=== PATIENT | male | born 1950 | race Caucasian/White ===

== ENCOUNTER → 2023-08-11 | Outpatient (CLI) | payer OTHER, SELFPAY ==
[~2023-08-11] MED LIST: IBUP200C5 PO; IOHEXOL 350 MG/ML 100ML INFUS..BTL IV ONE; LOSA50TA64 PO; OMEP40CA21 PO; ZOLP10TA2 PO
== END | disposition home or self-care (01) ==
LOC: RAH 08:32
PROVIDERS: ATTEND Student in an Organized Health Care Education/Training Program
DX: I25.10 Atherosclerotic heart disease of native coronary artery without angina pectoris (principal); I51.7 Cardiomegaly; K44.9 Diaphragmatic hernia without obstruction or gangrene; R94.31 Abnormal electrocardiogram [ECG] [EKG]; M47.815 Spondylosis without myelopathy or radiculopathy, thoracolumbar region
CPT/HCPCS: 75574; Q9967

== ENCOUNTER → 2023-09-09 | Outpatient (CLI) | payer OTHER ==
[~2023-09-09] MED LIST changes: -IOHEXOL 350 MG/ML 100ML INFUS..BTL IV ONE
== END | disposition home or self-care (01) ==
LOC: SHCH 08:30
PROVIDERS: ATTEND Student in an Organized Health Care Education/Training Program
DX: I25.10 Atherosclerotic heart disease of native coronary artery without angina pectoris (principal); R94.31 Abnormal electrocardiogram [ECG] [EKG]; I10 Essential (primary) hypertension; E78.5 Hyperlipidemia, unspecified
CPT/HCPCS: 93306

== ENCOUNTER 2023-10-30 06:48 | Day surgery (SDC) | payer OTHER ==
[2023-10-30] VITALS (10 sets, daily range): BP systolic 116–151; BP diastolic 77–85; PULSE 65–74; RESP 15–16
[~2023-10-30] VITALS: Ht 170.2 cm; Wt 83.9 kg
[~2023-10-30 06:48] MED LIST changes: +AMLO-257 PO; +ATOR40TA69 PO; +ESZO3TAB39 PO; -IBUP200C5 PO; -LOSA50TA64 PO; +OMEP20CA12 PO; -OMEP40CA21 PO; +TADA5TAB5 PO; -ZOLP10TA2 PO
[2023-10-30] MEDS: 0.9%NACL 1000ML 1,000 ML IV ONE (08:17)
[2023-10-30] MEDS ORDERED: PROPOFOL 10 MG/ML 20ML VIAL IV ONE ×2 (10:06→10:09)
== END 2023-10-30 12:00 | disposition home or self-care (01) ==
LOC: ENDO 06:48 → DAH 06:48 → ENDO 12:00
PROVIDERS: ATTEND Internal Medicine Gastroenterology
DX: K92.1 Melena (principal); R93.3 Abnormal findings on diagnostic imaging of other parts of digestive tract; K63.5 Polyp of colon; K29.70 Gastritis, unspecified, without bleeding; D17.5 Benign lipomatous neoplasm of intra-abdominal organs; K57.10 Diverticulosis of small intestine without perforation or abscess without bleeding; K57.30 Diverticulosis of large intestine without perforation or abscess without bleeding; K44.9 Diaphragmatic hernia without obstruction or gangrene; Z86.010 Personal history of colon polyps; Z79.899 Other long term (current) drug therapy; Z98.890 Other specified postprocedural states
CPT/HCPCS: 43239; 45380; 45385; J7030 ×2; J2704 ×2; A4620; A4215 ×2; A4223; A7002; A4222; A4221; A4663; A4606; J3490